=== PATIENT | male | born 1960 | race Caucasian/White ===

== ENCOUNTER 2018-09-29 09:26 | Day surgery (SDC) | payer MEDICARE, SELFPAY ==
--- NOTE | 2018-09-28 19:02 | POEE_ITS ---
History of Present Illness Chief Complaint: Progressive decreased vision, left eye Narrative: The patient is a 58-year-old male with history of progressive decreased vision in his left eye worse than right. He notes significant difficulty driving at night as well as fuzzy foggy and cloudy vision at both distance and near in both eyes. He was noted to have moderate nuclear cataracts with early posterior subcapsular cataract of the left eye. Uncorrected vision measured 20/50 OD, less than 20/400 OS. The option of cataract surgery was offered to the patient and he wished to proceed. NOTE: The Chief Complaint, HPI, Past Medical History, Past Surgical History, Family History, Social History, Medications, and complete Ophthalmic Exam with detailed Assessment and Plan have already been documented in the patient's outpatient ophthalmic record and are not covered again in detail here. PFSH Medical History Nuclear sclerotic cataract of left eye (Acute) Posterior subcapsular age-related cataract of left eye (Acute) Social History Smoking and Tabacco status: Former Tobacco Use Meds Home Medications Medication Instructions Recorded Confirmed Type albuterol sulfate [Ventolin HFA] 2 puff INHALATION Q4H PRN 09/23/18 09/23/18 History aspirin [Aspir-81] 81 mg PO DAILY 09/23/18 09/23/18 History atorvastatin 20 mg PO QHS 09/23/18 09/23/18 History diclofenac sodium 75 mg PO BID 09/23/18 09/23/18 History epinephrine [EpiPen 2-Smooth] 09/23/18 History folic acid 1 mg PO DAILY 09/23/18 09/23/18 History furosemide 20 mg PO DAILY 09/23/18 09/23/18 History isosorbide mononitrate 120 mg PO DAILY 09/23/18 09/23/18 History metoprolol succinate 50 mg PO DAILY 09/23/18 09/23/18 History minocycline 100 mg PO DAILY 09/23/18 09/23/18 History potassium chloride [Klor-Con 10] 10 meq PO DAILY 09/23/18 09/23/18 History thiamine HCl (vitamin B1) 100 mg PO DAILY 09/23/18 09/23/18 History trazodone 50 mg PO HS 09/23/18 09/23/18 History Allergies Allergy/AdvReac Type Severity Reaction Status Date / Time bees Allergy Unknown Uncoded 09/23/18 08:57 Pati Laundry soap AdvReac Severe Hives, rash Uncoded 09/23/18 08:57 Exam OCULAR EXAM:: Most recent ocular examination revealed uncorrected vision of 2 0/50 OD, less than 20/400 OS. Intraocular pressure was 14 OD. Extraocular motility was normal. Intraocular pressure in the left eye is 14. Pupils equal, round, and reactive without afferent pupillary defect slit-lamp examination shows pupils dilating to 6 mm OU. 2+ nuclear cataract OU. Trace posterior subcapsular cataract in the left eye. Dilated funduscopic examination shows disc cupping of 0.3 OU with good color. The optic nerves have good perfusion and normal color. The retinal vasculature is normal without significant tortuosity or abnormality. The maculas are normal in appearance with normal contour and foveal reflex appropriate for age. The peripheral retina and vitreous are normal. BRIGHTNESS ACUITY TESTING (BAT):: Brightness acuity testing of the left eye off is less than 20/400. Assessment and Plan (1) Posterior subcapsular age-related cataract of left eye: Current visit: No Status: Acute Assessment: Visually significant cataract, left eye. Plan: Cataract extraction with intraocular lens implantation, left eye (2) Nuclear sclerotic cataract of left eye: Current visit: No Status: Acute Assessment: Visually significant cataract, left eye. Plan: Cataract extraction with intraocular lens implantation, left eye Note: NOTE:: The details of the planned surgery, including the risks, indications,limitations,expectations,outcome and possible complications were e xplained to the patient. The patient understands the complications including, but not limited to: infection, hemorrhage, posterior dislocation of the lens or nuclear fragments which may require the intervention of a vitreoretinal surgeon, possible loss of the eye, or from anesthetic complications. The patient has been made aware of the option of not having surgery, that vision following surgery may not be equal to that prior to surgery, and that the planned surgery may not achieve the intended results. Following this discussion, which the patient appeared to understand, the patient wishes to proceed with cataract surgery with lens implantation of the affected eye to improve and maximize vision.
[2018-09-29 10:12] VITALS: BP 115/71; PULSE 89; RESP 20; TEMP 36; O2SAT 95
[2018-09-29] MEDS: Tetracaine 0.5% 4 ML BTL OS ×4 (10:30→13:22)
[2018-09-29] MEDS: Tropicam./Phenyleph. (1/2.5%) 5 ML BTL OS ×3 (10:30→10:42)
--- NOTE | 2018-09-29 12:54 | W.PM.DSUDISC ---
Discharge Plan Discharge Details Attending Provider: Andry Watts Primary Care Provider: Malik Young Home Meds and New Rx's Prescriptions: No Action epinephrine [EpiPen 2-Smooth] 0.3 mg/0.3 mL Auto-Injector RF: 0 atorvastatin 20 mg Tablet 20 mg PO QHS RF: 0 trazodone 50 mg Tablet 50 mg PO HS RF: 0 metoprolol succinate 50 mg Tablet Extended Release 24 Hr 50 mg PO DAILY RF: 0 minocycline 100 mg Capsule 100 mg PO DAILY RF: 0 thiamine HCl (vitamin B1) 100 mg Tablet 100 mg PO DAILY RF: 0 potassium chloride [Klor-Con 10] 10 mEq Tablet Extended Release 10 meq PO DAILY RF: 0 aspirin [Aspir-81] 81 mg Tablet,Delayed Release (Dr/Ec) 81 mg PO DAILY RF: 0 isosorbide mononitrate 120 mg Tablet Extended Release 24 Hr 120 mg PO DAILY RF: 0 diclofenac sodium 75 mg Tablet,Delayed Release (Dr/Ec) 75 mg PO BID RF: 0 folic acid 1 mg Tablet 1 mg PO DAILY RF: 0 furosemide 20 mg Tablet 20 mg PO DAILY RF: 0 Ventolin HFA 90 mcg/actuation Hfa Aerosol Inhaler 2 puff INHALATION Q4H PRN (Reason: Wheezing) RF: 0 Discharge Instructions Stand Alone Forms: Post-op Topical CataractKadie (DSU) DS: Diagnosis Discharge Diagnosis (1) Status post cataract extraction and insertion of intraocular lens of left eye: Status: Chronic
[2018-09-29] MEDS: Lidocaine 1% Pres-Free 5 ML VIAL (13:21)
[2018-09-29] MEDS: Balanced Salt Soln.-PLUS 500 ML BAG (13:23)
[2018-09-29] MEDS: Lidocaine 2% Jelly 6 ML SYR (13:25)
[2018-09-29] MEDS: Povidone-Iodine Ophth 30 ML BTL (13:28)
--- NOTE | 2018-09-29 13:50 | W.PM.OP ---
Date of service: 09/29/18 Time of Service: 13:50 Operative Note PRE-OP DIAGNOSIS: Cataract, left eye POST-OP DIAGNOSIS: same PROCEDURE: Cataract extraction using phacoemulsification with intraocular lens implant, left eye SURGEON: Andry Watts ANESTHESIA: MAC and local (sub-tenon's anesthetic infiltration) PATHOLOGY: none sent COMPLICATIONS: None Patient was transported to: same day Patient's condition: stable Implants: [employer] / [employer] Tecnis ZCB00 Indications: Progressive decreased vision due to cataract, left eye Procedure Description: CATARACT SURGERY OPERATIVE REPORT PREOPERATIVE DIAGNOSIS: Nuclear/posterior subcapsular cataract, left eye, symptomatic POSTOPERATIVE DIAGNOSIS: Same OPERATION: Cataract extraction using phacoemulsification with posterior chamber intraocular lens implant, left eye. IOL: IOL Photo Technologist/Model: [employer] / ALEXEY [employer]nis ZCB00 IOL Power: + 18.50 diopters IOL Serial Number: [id number] Optic Diameter: 6.0mm Haptic/Overall Diameter: 13.0mm PHACO INFO: [employer] System with OZil and [employer] Cumulative Dispersed Energy (CDE): 9.80 seconds SURGEON: Andry Watts MD, NILSA ANESTHESIA: Monitored Anesthesia Care (MAC), with local sub-tenon's anesthetic infiltration COMPLICATIONS: None SPECIMENS: None INDICATIONS FOR PROCEDURE: The patient is a 58-year-old gentleman with history of diminished visual acuity in his left eye who was noted to have a moderate nuclear and mild posterior subcapsular cataract with diminished visual acuity. The option of cataract surgery was offered to the patient and he felt he was symptomatic enough that he wished to proceed. PROCEDURE: The correct surgical eye was identified and marked as the left eye and the pupil was dilated in the preoperative area using mydriatics and cycloplegics. The dilated pupil size was 7.0 mm. Oral sedation was administered in the form of an Imprimis MKO Melt (midazolam 3mg/ketamine 25mg/ondansetron 2mg). The patient was brought to the operating room where cardiopulmonary monitoring was instituted and surgical time-out was performed, confirming the correct operative eye and IOL power. Topical anesthesia was administered and ophthalmic povidone-iodine 5% was instilled into the conjunctival fornices. Lidocaine gel was applied to the cornea and the peterson-ocular area was prepped with Betadine 10% solution and draped in the usual sterile fashion for intraocular surgery, including an aperture drape. A Tegaderm transparent film dressing was cut in half and used to cover the lashes and lid margins. Care was taken to sequester the lashes and lid margins under the Tegaderm dressing. A lid speculum was placed between the lids of the operative eye and the Magen-Nerissa operating microscope was maneuvered into position. Juan Francisco scissors were then used to make a conjunctival buttonhole approximately 6mm posterior to the limbus in the inferonasal quadrant. Blunt dissection was carried out to expose bare sclera, and a blunt-tipped sub-tenon?s anesthesia cannula was introduced and passed posteriorly along the globe where non-preserved plain lidocaine was injected into posterior sub-Tenon?s space. A sideport knife was used to make a paracentesis port superior/superiortemporal, and the anterior chamber was filled with [place]al[place] GV. A 2.4mm keratome knife was used to create a half-thickness groove at the limbus and then to construct a three-plane near-clear corneal tunnel extending 2.0mm into clear cornea in the temporal position. . A flap was raised on the anterior capsule and capsulorhexis forceps were used to complete a continuous curvilinear capsulorhexis of 5.0 mm. The capsulorhexis and the remainder of the surgery was difficult due to continuous involuntary saccadic movement. Balanced salt solution was then used to perform cortical cleaving hydrodissection and nuclear hydrodelineation until the lens could be freely rotated within the capsular bag. The lens nucleus was then disassembled and removed within the capsular bag and iris plane using phacoemulsification. Residual cortical material was removed using the 45-degree angled silicone I/A tip with 0.3mm port. The posterior capsule was carefully polished to remove as much residual lens epithelial cells as safely possible. The capsular bag was then inflated and the anterior chamber deepened with viscoelastic. The lens implant described above was inserted into the capsular bag using the ALEXEY [place] Injector. A Kuglen hook was used to dial the IOL into position. Residual viscoelastic was then removed first from posterior to the IOL, then from the anterior chamber using the I/A handpiece. The lens implant was noted to center nicely within the capsular bag. The incisions were stromally hydrated, and the anterior chamber was reformed using BSS. Then 0.4cc of moxifloxacin 1.5mg/ml were injected into the capsular bag and anterior chamber. The incisions were checked with a Weck spear and found to be secure. Several drops of ophthalmic povidone-iodine 5% were then applied to the eye followed by two drops of Imprimis combination moxifloxacin/dexamethasone solution. The drapes were removed and a clear plastic protective eye shield was placed over the eye. The patient was then returned to [facility] in stable condition.
[2018-09-29 14:00] VITALS: BP 103/68; PULSE 72; RESP 16; TEMP 35.9; O2SAT 94
== END 2018-09-29 14:15 | disposition home or self-care (01) ==
LOC: SUR 09:26
PROVIDERS: PCP Nurse Practitioner; Visit Provider Ophthalmology
PROC: (CPT 66984; principal; 2018-09-29 12:30)
DX: H25.812 Combined forms of age-related cataract, left eye (principal); E11.9 Type 2 diabetes mellitus without complications; I10 Essential (primary) hypertension
CPT/HCPCS: 66984; V2632